=== PATIENT | male | born 1980 | race Caucasian/White ===

== ENCOUNTER 2016-09-13 01:59 | Emergency (ER) | payer MEDICAID ==
[~2016-09-13] VITALS: Ht 188 cm; Wt 100.0 kg
[2016-09-13 03:31] LABS: BASOPHILS % (AUTO) 0.5 % (0.0-2.0); EOSINOPHILS % (AUTO) 4.8 % (1.0-6.0); HEMATOCRIT 46.9 % (41-53); HEMOGLOBIN 15.3 g/dL (13.5-17.5); LYMPHOCYTES # (AUTO) 2.7 K/uL (1.0-4.8); MEAN CORPUSCULAR HEMOGLOBIN 28.4 pg (26.0-34.0); MEAN CORPUSCULAR HGB CONC 32.7 G/dL (31.0-37.0); MEAN CORPUSCULAR VOLUME 87 fL (80-100); MONOCYTES # (AUTO) 0.9 K/uL (0.1-1.0); MONOCYTES % (AUTO) 9.2 % (2.0-9.0); NEUTROPHILS # (AUTO) 5.6 K/uL (1.8-7.7); NEUTROPHILS % (AUTO) 57.5 % (40.0-70.0); PLATELET COUNT (AUTO) 168 K/uL (150-450); RED CELL DISTRIBUTION WIDTH 15.3 % (11.5-14.5); WHITE BLOOD COUNT (AUTO) 9.8 K/uL (4.5-11.0)
[2016-09-13 03:34] LABS: ANION GAP 8 mmol/L (8-16); CALCIUM, TOTAL 8.7 mg/dL (8.8-10.5); CARBON DIOXIDE 30 mmol/L (22-29); CHLORIDE 104 mmol/L (98-107); CREATININE 1.19 mg/dL (0.60-1.30); GLOMERULAR FILTR. RATE CALC > 60 mL/min (>60); POTASSIUM 3.6 mmol/L (3.5-5.1); SODIUM SERUM 142 mmol/L (136-145); UREA NITROGEN, BLOOD 22 mg/dL (7-18)
[2016-09-13 03:40] LABS: ALANINE AMINOTRANSFERASE 31 U/L (12-78); ALBUMIN 4.2 g/dL (3.4-5.0); ASPARTATE AMINOTRANSFERASE 19 U/L (15-37); BILIRUBIN,TOTAL 0.7 mg/dL (0.1-1.0); TOTAL PROTEIN, SERUM 7.3 g/dL (6.4-8.2)
[2016-09-13 03:50] LABS: APPEARANCE,URINE CLEAR (CLEAR); GLUCOSE, URINE (UA) NEGATIVE (NEGATIVE); KETONES,URINE 15 mg/dL (NEGATIVE); LEUKOCYTE ESTERASE ,URINE NEGATIVE (NEGATIVE); OCCULT BLOOD,URINE LARGE (NEGATIVE); PH,URINE 5.5 (5.0-8.0); PROTEIN,URINE NEGATIVE (NEGATIVE)
[2016-09-13 03:56] LABS: ADD UA MICROSCOPIC YES
[2016-09-13] MEDS ORDERED: KETOROLAC TROMETHAMINE 30 MG/ML VIAL IVP ONE (04:15)
[2016-09-13] MEDS ORDERED: ACETAMINOPHEN/CODEINE 300-30 MG TABLET PO ONE (04:15)
[2016-09-13 04:22] LABS: SQUAMOUS EPITHELIAL CELL,UR Rare /LPF (None Seen); WBC,URINE 0-2 /HPF (0-5)
[2016-09-13 05:25] VITALS: BP 133/83
== END 2016-09-13 05:28 | disposition home or self-care (01) ==
LOC: EMS 02:00
DX: N20.9 Urinary calculus, unspecified (principal)
CPT/HCPCS: 36415; 76700; 80053; 81001; 83690; 85025; 96374; 99285; J1885

== ENCOUNTER 2018-09-19 10:12 | Emergency (ER) | payer MEDICAID ==
[~2018-09-19] VITALS: Ht 188 cm; Wt 86.4 kg
[2018-09-19] MEDS ORDERED: HYDR28CR67 TP (10:23)
[2018-09-19] MEDS ORDERED: DIPH25 PO (10:23)
[2018-09-19] MEDS ORDERED: HydrOXYzine HCL 25 MG TABLET PO ONE (12:15)
[2018-09-19] MEDS ORDERED: PredniSONE 20 MG TABLET PO ONE (12:15)
[2018-09-19 13:02] VITALS: BP 135/77
== END 2018-09-19 13:04 | disposition home or self-care (01) ==
LOC: EMS 10:13
DX: T78.40XA Allergy, unspecified, initial encounter (principal); X58.XXXA Exposure to other specified factors, initial encounter; Z79.899 Other long term (current) drug therapy
CPT/HCPCS: 99283; J7512